=== PATIENT | male | born 1960 | race Caucasian/White ===

== ENCOUNTER 2022-07-19 13:41 | Emergency (ER) | payer OTHER ==
[~2022-07-19] VITALS: Ht 180.3 cm; Wt 78.0 kg
[2022-07-19 15:21] LABS: Urine Bacteria NONE SEEN /hpf (None Seen); Urine Blood Negative /uL (Negative); Urine Mucus FEW (None Seen); Urine Specific Gravity 1.014 (1.001-1.035); Urine WBC <1 /hpf (0 - 3)
[2022-07-19 19:34] LABS: Basophils # (auto) 0.1 10 ^3/uL (0-0.2); Basophils % (auto) 0.7 % (0.0-2.0); Eosinophils # (auto) 0.1 10 ^3/uL (0-0.8); Eosinophils % (auto) 1.2 % (0.0-7.0); Hematocrit 44.2 % (41.0-53.0); Lymphocytes # (auto) 1.8 10 ^3/uL (0.4-5.4); Mean Corpuscular Hemoglobin 29.8 pg (28.0-32.0); Mean Corpuscular Hgb Conc. 33.9 g/dL (32.0-36.0); Mean Corpuscular Volume 87.9 fL (80.0-100.0); Monocytes # (auto) 0.8 10 ^3/uL (0-1.3); Monocytes % (auto) 9.5 % (0.0-12.0); Neutrophils # (auto) 5.7 10 ^3/uL (1.6-8.6); Neutrophils % (auto) 67.6 % (37.0-80.0); Nucleated Red Blood Cells % 0.1 %; Red Blood Cells 5.02 10^6/uL (4.5-5.90); White Blood Cell 8.4 10^3/uL (4.4-10.8)
[2022-07-19 19:56] LABS: Albumin 4.1 g/dL (3.4-5.0); BUN/Creatinine Ratio 16.8; Calcium 9.3 mg/dL (8.5-10.1)
[2022-07-19 19:59] LABS: Bilirubin, Total 0.7 mg/dL (0.2-1.0); Total Protein 7.6 g/dL (6.4-8.2)
[2022-07-20] MEDS ORDERED: ONDANSETRON ODT 4 MG TAB PO ONE (00:15)
[2022-07-20] MEDS ORDERED: HYDROcodone-ACET 5/325MG TAB PO ONE (00:15)
[2022-07-20] MEDS ORDERED: CYCL-837 PO (00:36)
[2022-07-20] MEDS ORDERED: HYDR-4902 PO (00:36)
[2022-07-20 00:42] VITALS: BP 151/91
== END 2022-07-20 00:44 | disposition home or self-care (01) ==
LOC: ER 13:41
DX: M54.59 Other low back pain (principal); R07.89 Other chest pain
CPT/HCPCS: 36415; 74176; 76705; 80053; 81001; 83690; 85025; 93005